=== PATIENT | male | born 1995 | race Caucasian/White ===

== ENCOUNTER 2016-11-02 00:21 | Emergency (ER) | payer MEDICAID ==
[~2016-11-02] VITALS: Ht 177.8 cm; Wt 77.1 kg
[2016-11-02 00:41] VITALS: BP 146/80
[2016-11-02] MEDS ORDERED: PENICILLIN G BENZATHINE 2.4 MMU/4 ML ML IM ONE ×2 (02:00→02:24)
[2016-11-02] MEDS ORDERED: HYDROCODONE/APAP 5/325MG 1 EACH TABLET PO ONE (02:00)
[2016-11-02] MEDS ORDERED: HYDROCODONE/APAP 5/325MG 1 EACH TABLET ONE (02:34)
[2016-11-02] MEDS ORDERED: ACETAMINOPHEN ES 500 MG TABLET ONE (02:34)
== END 2016-11-02 03:08 | disposition home or self-care (01) ==
LOC: ER 00:24
DX: M79.601 Pain in right arm (principal); G89.29 Other chronic pain; J02.9 Acute pharyngitis, unspecified
CPT/HCPCS: A4606; J0558; Z7610

== ENCOUNTER 2017-03-13 17:54 | Emergency (ER) | payer MEDICAID ==
[~2017-03-13] VITALS: Ht 180.3 cm; Wt 71.7 kg
[2017-03-13 18:02] VITALS: BP 126/81
== END 2017-03-13 18:18 | disposition home or self-care (01) ==
LOC: ER 17:55
DX: S29.012A Strain of muscle and tendon of back wall of thorax, initial encounter (principal); M54.5 Low back pain; X58.XXXA Exposure to other specified factors, initial encounter; Y93.43 Activity, gymnastics; Y92.89 Other specified places as the place of occurrence of the external cause; Y99.9 Unspecified external cause status
CPT/HCPCS: A4606; Z7502; Z7610

== ENCOUNTER 2017-10-23 18:38 | Emergency (ER) | payer MEDICAID ==
[~2017-10-23] VITALS: Ht 177.8 cm; Wt 74.4 kg
[2017-10-23 19:01] VITALS: BP 167/98
--- NOTE | 2017-10-23 19:23 | NUR ---
ADINA PEREA CALLED PT. NO RESPONSE.
--- NOTE | 2017-10-23 19:30 | NUR ---
ADINA PEREA CALLED PT. NO RESPONSE.
--- NOTE | 2017-10-23 19:52 | NUR ---
CALLED FOR THE 3RD TIME. NO ANSWER. PT LEFT WITHOUT BEING SEEN. ADINA PEREA AWARE.
== END 2017-10-23 19:55 | disposition left against medical advice (07) ==
LOC: ER 18:40
DX: Z53.21 Procedure and treatment not carried out due to patient leaving prior to being seen by health care provider (principal)
CPT/HCPCS: A4606; Z7610

== ENCOUNTER 2018-11-18 18:41 | Emergency (ER) | payer MEDICAID ==
[~2018-11-18] VITALS: Ht 177.8 cm; Wt 70.8 kg
--- NOTE | 2018-11-18 18:55 | NUR ---
pt bib pd. comp of having +si, no plan noted. vss. awaiting md somers.
--- NOTE | 2018-11-18 18:56 | NUR ---
lapd at bedside. pt belongings collected, bagged and stored with charge nurse at nurses station.
--- NOTE | 2018-11-18 18:58 | NUR ---
si precautions in place.
--- NOTE | 2018-11-18 19:03 | NUR ---
PATIENT BELONGINGS AND HOME MEDICATIONS TAKEN FROM [employer] PLACED IN THE NURSES STATION.
[2018-11-18 19:06] LABS: BASOPHILS % (AUTO) 0.5 % (0.0-2.0); EOSINOPHILS % (AUTO) 1.2 % (0.0-6.0); HEMATOCRIT 41 % (39-51); HEMOGLOBIN 13.7 g/dL (13.5-17.5); LYMPHOCYTES # (AUTO) 2.7 /CMM (0.8-4.8); LYMPHOCYTES % (AUTO) 36.6 % (20.0-44.0); MEAN CORPUSCULAR HGB CONC 33 g/dl (31.0-36.0); MEAN CORPUSCULAR VOLUME 96 fL (80-96); MONOCYTES # (AUTO) 0.5 /CMM (0.1-1.30); MONOCYTES % (AUTO) 6.3 % (2.0-12.0); NEUTROPHILS # (AUTO) 4.1 /CMM (1.8-8.9); NEUTROPHILS % (AUTO) 55.4 % (43.0-81.0); PLATELET COUNT (AUTO) 223 /CMM (150-450); WHITE BLOOD COUNT (AUTO) 7.4 K/uL (4.3-11.0)
[2018-11-18 19:26] LABS: CALCIUM, SERUM 8.4 mg/dL (8.5-10.1); CARBON DIOXIDE 27 mmol/L (21-32); CHLORIDE 108 mmol/L (98-107); CREATININE 0.8 mg/dL (0.6-1.3); GLUCOSE 143 mg/dL (74-106); POTASSIUM 4.4 mmol/L (3.5-5.1); SODIUM SERUM 142 mmol/L (136-145); UREA NITROGEN, BLOOD 12 mg/dL (7-18)
[2018-11-18 19:30] LABS: ALANINE AMINOTRANSFERASE 32 U/L (12-78); ALBUMIN 3.6 g/dL (3.4-5.0); ALCOHOL, BLOOD < 3 mg/dL (0-0); ALKALINE PHOSPHATASE 83 U/L (46-116); ASPARTATE AMINOTRANSFERASE 14 U/L (15-37); BILIRUBIN,TOTAL 0.2 mg/dL (0.2-1.0); TOTAL PROTEIN, SERUM 6.7 g/dL (6.4-8.2)
--- NOTE | 2018-11-18 19:30 | NUR ---
pt unable to urinate at this time. will try again
[2018-11-18 19:31] LABS: ACETAMINOPHEN 0 ug/ml (10-30); SALICYLATE 0.4 mg/dL (2.8-20.0)
--- NOTE | 2018-11-18 19:49 | NUR ---
urine collected and sent to lab
[2018-11-18 19:54] LABS: BILIRUBIN,URINE NEGATIVE (NEGATIVE); BLOOD, URINE NEGATIVE Ery/uL (NEGATIVE); COLOR,URINE YELLOW (YELLOW); KETONES,URINE NEGATIVE (NEGATIVE); LEUKOCYTE ESTERASE ,URINE NEGATIVE (NEGATIVE); NITRITE, URINE NEGATIVE (NEGATIVE); PROTEIN,URINE NEGATIVE (NEGATIVE); UGLUCOSE NEGATIVE (NEGATIVE); UROBILINOGEN,URINE 0.2 EU/dL (0.2)
[2018-11-18 19:55] LABS: APPEARANCE,URINE SLIGHTLY CLOUDY (CLEAR); RBC,URINE 0-2 /HPF (0-2); WBC,URINE 0-2 /HPF (0-3)
--- NOTE | 2018-11-18 19:55 | NUR ---
lapd at bedside. called house sup for sitter.
[2018-11-18 19:56] LABS: BACTERIA,URINE Rare /HPF (None Seen); SQUAMOUS EPITHELIAL CELL,UR Rare /HPF (None Seen); URINE AMORPHOUS PHOSPHATES Few /HPF (None Seen)
--- NOTE | 2018-11-18 19:57 | NUR ---
si precautions in place.
--- NOTE | 2018-11-18 20:05 | NUR ---
Eric ORDOÑEZ at bedside. pt vss. resp even and unlaboured. on monitor.
[2018-11-18] MEDS ORDERED: LORAZEPAM 0.5 MG TABLET PO ONE (20:30)
[2018-11-18] MEDS ORDERED: LORAZEPAM 0.5 MG TABLET ONE (20:42)
--- NOTE | 2018-11-18 20:52 | NUR ---
LEFT MESSAGE WITH MARLA MCKNIGHT WITH CRISIS TEAM.
--- NOTE | 2018-11-18 21:10 | NUR ---
CAYDEN CALLED BACK, WILL BE HERE SHORTLY
--- NOTE | 2018-11-18 21:31 | NUR ---
sitter remains at bedside. pt resting comfortably. vss.
--- NOTE | 2018-11-18 22:24 | NUR ---
pt aox4. vss. sitter at bedside.
--- NOTE | 2018-11-18 23:37 | NUR ---
new sitter at bedside Sharyn ORDOÑEZ. report given to Nat GUTIÉRREZ for ALONDRA. vss. pt resting comfortably
--- NOTE | 2018-11-18 23:47 | NUR ---
SMITA OATES AT BEDSIDE. PATIENT RESTING WITH EYES CLOSED, AROUSES EASILY TO VOICE. VSS, RESP EVEN UNLABORED.
--- NOTE | 2018-11-19 00:13 | NUR ---
ACCEPTED TO [facility] [place] TO DR WHITE, RN TO RN REPORT # [phone]
--- NOTE | 2018-11-19 00:34 | NUR ---
MICHAEL TO PICKUP PATIENT AT 0135 HOURS. TRIP#[id number]
--- NOTE | 2018-11-19 00:54 | NUR ---
RN TO RN REPORT GIVEN TO MITCH AT [facility].
--- NOTE | 2018-11-19 01:01 | NUR ---
SMITA OATES AT BEDSIDE. PATIENT RESTING WITH EYES CLOSED, AROUSES EASILY TO VOICE. VSS, RESP EVEN UNLABORED.
[2018-11-19 01:20] VITALS: BP 127/82
--- NOTE | 2018-11-19 01:21 | NUR ---
PATIENT AOX4, MOTHER AT BEDSIDE. VSS, SITTER REMAINS AT BEDSIDE.
--- NOTE | 2018-11-19 01:30 | NUR ---
PATIENT BELONGINGS AND HOME MEDICATIONS GIVEN TO MOTHER TO TAKE HOME.
--- NOTE | 2018-11-19 01:33 | NUR ---
REPORT GIVEN TO NEGRA, EMT WITH [facility] FOR TRANSFER.
--- NOTE | 2018-11-19 03:45 | NUR ---
RECEIVED CALL FROM [facility] RELATIONS ADVISER STATING PATIENT TOLD THEM HE TOOK A WHOLE BOTTLE OF HOME MEDICATION WHILE IN THE ER. RN INFORMED [facility] THAT PATIENT WAS PLACED ON SI PRECAUTIONS ON ARRIVAL, ALL BELONGINGS/HOME MEDICATIONS TAKEN FROM PATIENT ON ARRIVAL, PLACED AT NURSES STATION AND SITTER AT BEDSIDE DURING HIS TIME IN THE ER. [facility] RN INFORMED PATIENT NEVER HAD ACCESS TO ANY MEDICATIONS WHILE IN THE ER.
== END 2018-11-19 02:01 ==
LOC: ER 18:43
DX: S50.812A Abrasion of left forearm, initial encounter (principal); R45.851 Suicidal ideations; F32.9 Major depressive disorder, single episode, unspecified; F20.9 Schizophrenia, unspecified; Z60.2 Problems related to living alone; X78.8XXA Intentional self-harm by other sharp object, initial encounter; Y93.89 Activity, other specified; Y92.89 Other specified places as the place of occurrence of the external cause; Y99.8 Other external cause status
CPT/HCPCS: 36415; 80048; 80076; 80305; 80307; 80329; 81001; 85025; 99285; A4606; A6402; G0480; 81000-TC

== ENCOUNTER 2019-03-25 20:23 | Emergency (ER) | payer MEDICAID ==
[~2019-03-25] VITALS: Ht 177.8 cm; Wt 74.8 kg
[2019-03-25] MEDS ORDERED: ACETAMINOPHEN ES 500 MG TABLET PO ONE (21:00)
[2019-03-25 21:11] LABS: BASOPHILS # (AUTO) 0.1 /CMM (0.0-0.2); BASOPHILS % (AUTO) 0.6 % (0.0-2.0); EOSINOPHILS % (AUTO) 0.5 % (0.0-6.0); HEMATOCRIT 43 % (39-51); HEMOGLOBIN 14.6 g/dL (13.5-17.5); LYMPHOCYTES # (AUTO) 2.4 /CMM (0.8-4.8); LYMPHOCYTES % (AUTO) 17.1 % (20.0-44.0); MEAN CORPUSCULAR HGB CONC 34 g/dl (31.0-36.0); MEAN CORPUSCULAR VOLUME 88 fL (80-96); MONOCYTES # (AUTO) 1.7 /CMM (0.1-1.30); MONOCYTES % (AUTO) 11.6 % (2.0-12.0); NEUTROPHILS # (AUTO) 10.1 /CMM (1.8-8.9); NEUTROPHILS % (AUTO) 70.2 % (43.0-81.0); PLATELET COUNT (AUTO) 217 /CMM (150-450); RED BLOOD CELL COUNT(AUTO) 4.96 MIL/uL (4.5-6.0); WHITE BLOOD COUNT (AUTO) 14.3 K/uL (4.3-11.0)
[2019-03-25 21:23] LABS: CALCIUM, SERUM 8.9 mg/dL (8.5-10.1); CREATININE 0.9 mg/dL (0.6-1.3); POTASSIUM 3.7 mmol/L (3.5-5.1)
[2019-03-25] MEDS ORDERED: ACETAMINOPHEN ES 500 MG TABLET ONE (21:26)
[2019-03-25 21:34] LABS: ALBUMIN 3.6 g/dL (3.4-5.0); BILIRUBIN,DIRECT 0.1 mg/dL (0.0-0.2); BILIRUBIN,TOTAL 0.7 mg/dL (0.2-1.0)
[2019-03-25 21:54] LABS: APPEARANCE,URINE Clear (CLEAR); BILIRUBIN,URINE Negative (NEGATIVE); BLOOD, URINE Negative Ery/uL (NEGATIVE); COLOR,URINE Yellow (YELLOW); KETONES,URINE Negative (NEGATIVE); LEUKOCYTE ESTERASE ,URINE Negative (NEGATIVE); NITRITE, URINE Negative (NEGATIVE); PROTEIN,URINE Negative (NEGATIVE); UGLUCOSE Negative (NEGATIVE); UROBILINOGEN,URINE 0.2 EU/dL (0.2)
[2019-03-25 22:01] VITALS: BP 124/73
== END 2019-03-25 22:02 | disposition home or self-care (01) ==
LOC: ER 20:32
DX: T80.89XA Other complications following infusion, transfusion and therapeutic injection, initial encounter (principal); R14.0 Abdominal distension (gaseous); F20.9 Schizophrenia, unspecified; F32.9 Major depressive disorder, single episode, unspecified; F10.10 Alcohol abuse, uncomplicated; Y90.9 Presence of alcohol in blood, level not specified; Z60.2 Problems related to living alone
CPT/HCPCS: 36415; 74021; 80048-TC; 80076-TC; 81000-TC; 83690-TC; 85025-TC

== ENCOUNTER 2019-05-22 15:40 | Emergency (ER) | payer MEDICAID, OTHER ==
[~2019-05-22] VITALS: Ht 182.9 cm; Wt 113.4 kg
[2019-05-22 16:37] VITALS: BP 128/59
--- NOTE | 2019-05-22 16:37 | NUR ---
PT BIB MOM C/O HEADACHE STARTED LAST NIGHT, PT IS AAOX4, NOT IN RESPIRATORY DISTRESS, HOOKED TO MONITOR, KEPT RESTED AND COMFORTABLE, WILL CONTINUE TO MONITOR.
--- NOTE | 2019-05-22 17:10 | NUR ---
SEEN AND EXAMINED BY MACIEJ AVERY
[2019-05-22] MEDS ORDERED: KETOROLAC TROMETHAMINE INJ 30 MG/ML VIAL ONE (17:30)
[2019-05-22] MEDS ORDERED: IV NS 0.9% 1,000 ML BAG IV ONE (17:30)
[2019-05-22] MEDS ORDERED: KETOROLAC TROMETHAMINE INJ 30 MG/ML VIAL IV ONE (17:30)
--- NOTE | 2019-05-22 17:40 | NUR ---
IV LINE ESTABLISHED.
--- NOTE | 2019-05-22 19:20 | NUR ---
IV removed. Catheter intact and site benign. Pressure and 4x4 applied to site. No bleeding noted. Patient discharged to home in stable condition. Written and verbal after care instructions given. Patient verbalizes understanding of instruction.
== END 2019-05-22 19:23 | disposition home or self-care (01) ==
LOC: ER 15:40
DX: R51 Headache (principal); F32.9 Major depressive disorder, single episode, unspecified; F20.9 Schizophrenia, unspecified; Z60.2 Problems related to living alone
CPT/HCPCS: 96374; 99283; J1885; J7030

== ENCOUNTER 2019-09-02 23:11 | Emergency (ER) | payer MEDICAID, OTHER ==
[~2019-09-02] VITALS: Ht 182.9 cm; Wt 90.7 kg
--- NOTE | 2019-09-02 23:23 | NUR ---
PT AAOX4. BIBSELF. AMBULATORY. HAS HX OF ASTHMA. PER PATIENT "MY INHALER DID NOT HELP." PT C/O SOB. PLACED ON MONITOR AND PULSE OX. RR EVEN, SAT 97% ON ROOM AIR. AWAITING MD FOR EVAL. NO ACUTE DISTRESS NOTED. FAMILY AT BEDSIDE.
--- NOTE | 2019-09-02 23:28 | NUR ---
PA AT BEDSIDE.
[2019-09-02] MEDS ORDERED: predniSONE 20 MG TABLET PO ONE (23:30)
[2019-09-02] MEDS ORDERED: ALBUTEROL FS 2.5 MG/3 ML VIAL.NEB NEB ONE (23:30)
[2019-09-02] MEDS ORDERED: IPRATROPIUM NEB FS 0.5 MG/2.5 ML AMPUL.NEB NEB ONE (23:30)
[2019-09-02] MEDS ORDERED: predniSONE 20 MG TABLET ONE (23:34)
[2019-09-02] MEDS ORDERED: ALBUTEROL FS 2.5 MG/3 ML VIAL.NEB ONE (23:36)
[2019-09-02] MEDS ORDERED: IPRATROPIUM NEB FS 0.5 MG/2.5 ML AMPUL.NEB ONE (23:36)
--- NOTE | 2019-09-02 23:39 | NUR ---
RT AT BEDSIDE FOR BREATHING TREATMENT
--- NOTE | 2019-09-03 00:09 | NUR ---
BREATHING TX FINISHED. O2 SAT IS 99%
--- NOTE | 2019-09-03 00:11 | NUR ---
Kimi TSE PA-C IS AT THE BEDSIDE REASSESSING THE PT. PT STATED THAT HE FEELS BETTER.
[2019-09-03 00:24] VITALS: BP 148/86
--- NOTE | 2019-09-03 00:24 | NUR ---
Patient discharged to home in stable condition. Written and verbal after care instructions given. Patient verbalizes understanding of instruction. PT ambulatory with a steady gait.
== END 2019-09-03 00:25 | disposition home or self-care (01) ==
LOC: ER 23:13
DX: J45.901 Unspecified asthma with (acute) exacerbation (principal); F41.9 Anxiety disorder, unspecified; F32.9 Major depressive disorder, single episode, unspecified; F20.9 Schizophrenia, unspecified; Z60.2 Problems related to living alone
CPT/HCPCS: 94640; 99283; J7512

== ENCOUNTER 2019-10-10 00:41 | Emergency (ER) | payer OTHER ==
[~2019-10-10] VITALS: Ht 182.9 cm; Wt 108.9 kg
--- NOTE | 2019-10-10 00:45 | NUR ---
bib family for c/o SOB and cough x 2 hrs. - fever. PMH of asthma
[2019-10-10] MEDS ORDERED: IPRATROPIUM NEB FS 0.5 MG/2.5 ML AMPUL.NEB NEB ONE (01:00)
[2019-10-10] MEDS ORDERED: ALBUTEROL FS 2.5 MG/3 ML VIAL.NEB NEB ONE (01:00)
[2019-10-10] MEDS ORDERED: ALBUTEROL FS 2.5 MG/3 ML VIAL.NEB ONE (01:01)
[2019-10-10] MEDS ORDERED: IPRATROPIUM NEB FS 0.5 MG/2.5 ML AMPUL.NEB ONE (01:01)
[2019-10-10 01:43] VITALS: BP 138/82
--- NOTE | 2019-10-10 01:43 | NUR ---
Patient discharged to home in stable condition. Rx and Written and verbal after care instructions given. Patient verbalizes understanding of instruction.
== END 2019-10-10 01:43 | disposition home or self-care (01) ==
LOC: ER 00:44
DX: J45.901 Unspecified asthma with (acute) exacerbation (principal); F32.9 Major depressive disorder, single episode, unspecified; F20.9 Schizophrenia, unspecified; Z60.2 Problems related to living alone
CPT/HCPCS: 71045-TC

== ENCOUNTER 2021-08-01 20:30 | Emergency (ER) | payer BC, OTHER ==
[~2021-08-01] VITALS: Ht 177.8 cm; Wt 118.4 kg
[2021-08-01] MEDS ORDERED: CLIN300C12 PO (21:28)
[2021-08-01] MEDS ORDERED: GENT5DRO4 LEFTEYE (21:30)
[2021-08-01 21:38] VITALS: BP 140/88
== END 2021-08-01 21:39 | disposition home or self-care (01) ==
LOC: ER 20:35
DX: H04.302 Unspecified dacryocystitis of left lacrimal passage (principal); F32.9 Major depressive disorder, single episode, unspecified; J45.909 Unspecified asthma, uncomplicated; F20.9 Schizophrenia, unspecified; Z60.2 Problems related to living alone; Z79.899 Other long term (current) drug therapy

== ENCOUNTER 2022-08-20 04:02 | Emergency (ER) | payer BC, OTHER ==
[~2022-08-20] VITALS: Ht 182.9 cm; Wt 104.3 kg
[~2022-08-20 04:02] MED LIST: CLIN300C12 PO; GENT5DRO4 LEFTEYE
[2022-08-20 04:17] VITALS: BP 143/72
--- NOTE | 2022-08-20 04:17 | NUR ---
bibsetenisha c/o back pain x 1 hr after working out
[2022-08-20] MEDS ORDERED: KETO10TA2 PO (04:19)
[2022-08-20] MEDS ORDERED: LOPE2CAP PO (04:19)
[2022-08-20] MEDS ORDERED: KETOROLAC TROMETHAMINE INJ 60 MG/2 ML VIAL IM ONE ×2 (04:23→04:30)
--- NOTE | 2022-08-20 04:28 | NUR ---
Patient discharged to home in stable condition. RX Written and verbal after care instructions given. Patient verbalizes understanding of instruction.
== END 2022-08-20 04:31 | disposition home or self-care (01) ==
LOC: EDUNIT# 04:02 → ER 04:09
DX: S39.012A Strain of muscle, fascia and tendon of lower back, initial encounter (principal); R19.7 Diarrhea, unspecified; J45.909 Unspecified asthma, uncomplicated; F32.A Depression, unspecified; F20.9 Schizophrenia, unspecified; Z60.2 Problems related to living alone; Z79.899 Other long term (current) drug therapy; X58.XXXA Exposure to other specified factors, initial encounter; Y93.89 Activity, other specified; Y92.89 Other specified places as the place of occurrence of the external cause; Y99.8 Other external cause status
CPT/HCPCS: 99283; 96372; J1885